=== PATIENT | male | born 1995 | race Two or more races ===

== ENCOUNTER 2023-12-14 01:07 | Emergency (ER) | payer OTHER ==
[~2023-12-14] VITALS: Ht 175.3 cm; Wt 92.5 kg
[2023-12-14] MEDS ORDERED: 0.9 % SODIUM CHLORIDE 1,000 ML IV SCH (02:15)
[2023-12-14] MEDS ORDERED: ONDANSETRON HCL 2 MG/ML VIAL IV ONE (02:15)
[2023-12-14] MEDS ORDERED: KETOROLAC TROMETHAMINE 30 MG VIAL IV ONE (02:15)
[2023-12-14 02:48] LABS: HEMATOCRIT 42.2 % (39.0-48.0); HEMOGLOBIN 14.6 g/dL (13-16.00); MEAN CELL VOLUME 86.9 fL (80.0-100.00); MEAN CORPUSCULAR HEMOGLOBIN 30.1 pg (27.00-32.0); MEAN CORPUSCULAR HGB CONC 34.6 g/dl (32.0-36.0); PLATELET COUNT 284 K/uL (150-450); RED BLOOD COUNT 4.85 M/uL (4.00-6.00); RED CELL DISTRIBUTION WIDTH 12.5 % (11.5-14.5)
[2023-12-14 02:52] LABS: URINE APPEARANCE Clear; URINE BILIRRUBIN Negative (NEGATIVE); URINE BLOOD Large; URINE COLOR Yellow; URINE GLUCOSE Negative (NEGATIVE); URINE LEUKOCYTE Negative; URINE NITRATE Negative; URINE PROTEIN Negative (NEGATIVE)
[2023-12-14 02:55] LABS: URINE EPITHELIAL CELLS 2.1 uL (0.0-38.8); URINE RBC 483.4 uL (0.0-20.8); URINE WBC 7.7 uL (0.0-23.2)
[2023-12-14 02:56] LABS: ALBUMIN 3.8 gm/dL (3.4-5.0); BILIRUBIN TOTAL 0.49 mg/dL (0.3-1.2); CALCIUM 10.3 mg/dL (8.5-10.1); CREATININE SERUM 1.4 mg/dL (0.70-1.30); GFR 60.79; GLOBULINA 3.7 G/DL (2.4-3.5); POTASSIUM 5.12 mEq/L (3.5-5.1); TOTAL PROTEIN 7.5 gm/dL (6.4-8.2)
[2023-12-14 02:56] LABS: URINE BACTERIA 3.7 uL (0.0-1933)
[2023-12-14] MEDS ORDERED: TAMSULOSIN HCL 0.4 MG CAP PO ONE (04:15)
[2023-12-14] MEDS ORDERED: CIPRO500 MG PO (04:19)
[2023-12-14] MEDS ORDERED: TAMS0.4C PO (04:19)
[2023-12-14] MEDS ORDERED: KETO10TA2 PO (04:19)
== END 2023-12-14 04:34 | disposition home or self-care (01) ==
LOC: ER 01:07
PROVIDERS: General Practice
DX: N20.1 Calculus of ureter (principal); Z87.442 Personal history of urinary calculi; N20.0 Calculus of kidney